=== PATIENT | male | born 1945 | race Caucasian/White ===

== ENCOUNTER 2016-07-02 13:00 | Outpatient (CLI) | payer OTHER ==
--- NOTE | 2016-07-02 14:10 | DIAGNOSTIC IMAGING REPORT ---
PROCEDURE: CT ABDOMEN/PELVIS W/O CONTRAST INDICATION: ABD PAIN TECHNIQUE: Noncontrast axial images were obtained of the entire abdomen and pelvis with sagittal and coronal reformations. COMPARISON: None. FINDINGS: ABDOMEN: Lung base are clear. Heart size is normal. Mild inflammatory changes around the jarett hepatis, enlarged mid mesenteric lymph nodes (3.7 cm), periaortic lymph nodes (1.5 cm) and mild infiltration of the mesenteric root. Enlarged spleen measures 13.5 cm. Liver, gallbladder, pancreas, adrenal glands and right kidney are normal. Left parapelvic cyst. Mild atherosclerosis of the aorta. Small hiatal hernia. Diverticula of the third portion of the duodenum. PELVIS: Appendix not visualized but no evidence of acute appendicitis. Moderate sigmoid diverticulosis. Normal prostate and bladder. No adenopathy, mass, inflammatory changes or free fluid. Right inguinal surgical clips. Right hip arthroplasty. Severe degenerative changes of the spine. IMPRESSION: 1. Mesenteric, periaortic and jarett hepatis adenopathy. Consider lymphoma 2. Thickening of the gallbladder fundus wall and inflammatory changes near the neck. Recommend ultrasound 3. Diverticula of the third portion of the duodenum. 4. Small hiatal hernia 5. Sigmoid diverticulosis 6. Results discussed with Dr. Weiner and Riri Vora. All CT scans at this facility use dose modulation, iterative reconstruction, and/or weight-based dosing when appropriate to reduce radiation dose to as low as reasonably achievable.
== END 2016-07-02 23:00 ==
LOC: CT SRH 13:00
DX: R10.84 Generalized abdominal pain (principal)
CPT/HCPCS: 90074; 90100; 95059

== ENCOUNTER 2016-07-02 13:37 | Inpatient (IN) | payer OTHER ==
[~2016-07-02] VITALS: Ht 177.8 cm; Wt 96.2 kg
--- NOTE | 2016-07-02 16:43 | DIAGNOSTIC IMAGING REPORT ---
PROCEDURE: US ABDOMEN ULTRASOUND-LIMITED INDICATION: RUQ PAIN TECHNIQUE: Oliva scale and color Doppler sonographic images of the abdomen were obtained. COMPARISON: CT abdomen pelvis 07/02/2016. FINDINGS: There are three gallstones in the gallbladder fundus with thickened (9 mm) and hyperemic gallbladder wall with small amount of pericholecystic fluid. Epigastric tenderness is present. CBD measures 6.3 mm. Normal liver. Pancreas poorly visualized. Visualized aorta and IVC are patent. Normal hepatopetal flow. Normal right kidney measures 12.1 cm. IMPRESSION: 1. Cholelithiasis with inflammatory changes consistent with acute cholecystitis 2. Results discussed with Dr. Weiner
--- NOTE | 2016-07-02 17:18 | ED ORDER SUMMARY ---
..... Patient: EDWARDO HWANG OrderSheet [facility] VisitID: [id number] [place] [address] 70y, M Registration Date/Time: 07/02/2016 ORDER SHEET Weight: 95.2 kg (stated) Allergies: No Known Drug Allergy GENERAL ORDERS: US Abdomen Limited (Yes) Urgent (14:07/02/2016 DMjuan Hamilton) (Ack 14:33 EMILYoeryulissa) (16:14 KHoerner) CBC w Diff Urgent (14:07/02/2016 August Hamilton) (Ack 14:33 EMILYoerner) (14:39 ALawrence ER Tech1) (Cancelled: Physician Order14:40 August Hamilton) CMP Urgent (14:07/02/2016 August Hamilton) (Ack 14:33 Luca) (14:39 ALawrence ER Tech1) (Cancelled: Physician Order14:40 August Hamilton) UA-Culture if indicated Urgent (14:07/02/2016 August Hamilton) (Ack 14:33 Luca) (16:22 EHassan R.N.) Amylase Urgent (14:07/02/2016 August Hamilton) (Ack 14:33 Adonayrner) (14:39 ALawrence ER Tech1) (Cancelled: Physician Order14:40 August Hamilton) Lipase Urgent (14:07/02/2016 August Hamilton) (Ack 14:33 EMILYoerner) (14:39 ALawrence ER Tech1) MEDICATION ORDERS: IV FLUIDS: IV NS : initial bolus none -, then 1000 mL/hr for X1 (NOW) (14:28 07/02/2016 August Hamilton) (14:37 EHassan R.N.) Zofran IV 4 mg (NOW) (14:41 07/02/2016 EHassan R.N. per protocol) (14:42 EHassan R.N.) ORDER SHEET NOTES: [Electronically signed by Vinay Weiner Dr. (18:04 07/02/2016)] [Electronically signed by Saige Carbajal R.N. (07/02/2016)] [Electronically locked/signed by Saige Carbajal R.N. (07/02/2016)]
--- NOTE | 2016-07-02 17:18 | ED ORDER SUMMARY ---
..... Patient: EDWARDO HWANG OrderSheet [facility] VisitID: [id number] [place] [address] 70y, M Registration Date/Time: 07/02/2016 ORDER SHEET Weight: 95.2 kg (stated) Allergies: No Known Drug Allergy GENERAL ORDERS: US Abdomen Limited (Yes) Urgent (14:07/02/2016 DMjuan Hamilton) (Ack 14:33 EMILYoeryulissa) (16:14 KHoerner) CBC w Diff Urgent (14:07/02/2016 August Hamilton) (Ack 14:33 EMILYoerner) (14:39 ALawrence ER Tech1) (Cancelled: Physician Order14:40 August Hamilton) CMP Urgent (14:07/02/2016 August Hamilton) (Ack 14:33 Luca) (14:39 ALawrence ER Tech1) (Cancelled: Physician Order14:40 August Hamilton) UA-Culture if indicated Urgent (14:07/02/2016 August Hamilton) (Ack 14:33 Luca) (16:22 EHassan R.N.) Amylase Urgent (14:07/02/2016 August Hamilton) (Ack 14:33 Adonayrner) (14:39 ALawrence ER Tech1) (Cancelled: Physician Order14:40 August Hamilton) Lipase Urgent (14:07/02/2016 August Hamilton) (Ack 14:33 EMILYoerner) (14:39 ALawrence ER Tech1) MEDICATION ORDERS: IV FLUIDS: IV NS : initial bolus none -, then 1000 mL/hr for X1 (NOW) (14:28 07/02/2016 August Hamilton) (14:37 EHassan R.N.) Zofran IV 4 mg (NOW) (14:41 07/02/2016 EHassan R.N. per protocol) (14:42 EHassan R.N.) ORDER SHEET NOTES: [Electronically signed by Vinay Weiner Dr. (18:04 07/02/2016)] [Electronically signed by Saige Carbajal R.N. (07/02/2016)] [Electronically locked/signed by Saige Carbajal R.N. (07/02/2016)]
--- NOTE | 2016-07-02 17:18 | ED CLINICAL REPORT ---
Clinical Report - Physicians/Mid Levels [facility] [address] [place] [address] 07/02/2016 13:38 Patient: EDWARDO HWANG Time Seen: 14:00; upon arrival, initial patient contact, initial documentation, patient care assumed. Arrived- By private vehicle. HISTORY OF PRESENT ILLNESS Chief Complaint: ABDOMINAL PAIN. This started today and is still present (persistent). It was abrupt in onset and has been waxing/waning. It is described as "pain". At its maximum, severity described as 2 / 10. When seen in the E.D., severity described as mild. The patient has had vomiting and diarrhea. Similar symptoms previously: None. Recent medical care: Not recently seen/assessed. REVIEW OF SYSTEMS No constipation, black stools, fever, chest pain or difficulty breathing. Last bowel movement: today. He has had chills. All systems otherwise negative, except as recorded above. PAST HISTORY Malignant Lymphoma. Hypertension. Hypercholesterolemia. Heart Disease. Cancer. ADDITIONAL SURGERIES: Appendectomy. CABG x3. Total Hip Replacement. -. Medications: ASA Oral. Blood Thinner. Allergies: No Known Drug Allergy. SOCIAL HISTORY Former smoker. No alcohol use or drug use. ADDITIONAL NOTES The nursing notes have been reviewed. PHYSICAL EXAM Vital Signs: 07/02/2016 13:54 BP: 157/72. HR: 56. RR: 18. O2 saturation: 100%. Temp: 97.4 F. Pain level now: 1010. Have been reviewed. Hypertensive. Bradycardic. Respiratory rate normal. Temperature normal. Oxygen saturation normal. Appearance: Alert. Oriented X3. No acute distress. Eyes: Eyes normal inspection. No scleral icterus. ENT: Dry mucous membranes present. CVS: Normal heart rate and rhythm. Heart sounds normal. Respiratory: No respiratory distress. Breath sounds normal. Abdomen: Soft. Mild tenderness in the right upper quadrant and epigastric area. Positive Schroeder's sign. No guarding or rebound tenderness. Bowel sounds normal. No organomegaly. No mass. Back: Normal inspection. No CVA tenderness. Skin: Skin warm. Normal skin color. Extremities: No lower extremity edema. Neuro: Oriented X 3. LABS, X-RAYS, AND EKG Abdominal Sonogram: (1. Cholelithiasis with inflammatory changes consistent with acute cholecystitis). Study included the gallbladder. Prior studies were not available for comparison. The study was interpreted by the radiologist and discussed with the radiologist. Interpretation time: 16:57. Laboratory Tests: CBC w Diff: (VENICE: 07/02/2016 14:03) ( [facility] [place] 14:45) Final results Test Result Flag Units (Reference) WHITE BLOOD COUNT 8.8 K/uL (4.5-11.5) RED BLOOD COUNT 4.86 M/uL (4.50-5.90) HEMOGLOBIN 13.5 gm/dL (13.5-17.5) HEMATOCRIT 40.8 L % (41.0-53.0) MEAN CELL VOLUME 84 fL (80-100) MEAN CORPUSCULAR HGB 28 pg (26-34) MEAN CORPUSCULAR HGB CONC 33 g/dL (31-37) RED CELL DISTRIBUTION WIDTH 13.9 % (11.6-14.8) PLATELET COUNT 197 K/uL (150-400) NEUTROPHIL % 85.3 H % (50-75) LYMPH % 7.4 L % (25-40) MONO % 6.8 % (3-14) EOSINOPHIL % 0.4 % (0-4) BASOPHIL % 0.1 % (0-2) CMP: (VENICE: 07/02/2016 14:03) ( [facility] [place] 07/02/2016 15:36) Final results Test Result Flag Units (Reference) GLUCOSE 122 H mg/dL (70-110) BUN 20 H mg/dL (7-18) CREATININE 0.8 mg/dL (0.6-1.3) Estimated GFR >60 mL/min Estimated GFR- >60 mL/min Note: Persistent reduction over 3 months in eGFR<60 mL/min/1.73 m2 defines CKD. Patients with eGFR values>=60 mL/min/1.73 m2 may also have CKD if evidence ofpersistent proteinuria. Additional information may be foundat www.kidney.org. SODIUM 139 mmol/L (136-145) POTASSIUM 3.7 mmol/L (3.5-5.1) CHLORIDE 102 mmol/L (98-107) CARBON DIOXIDE 25 mmol/L (21-32) CALCIUM 8.8 mg/dL (8.5-10.1) TOTAL PROTEIN 8.0 g/dL (6.4-8.2) ALBUMIN 3.6 g/dL (3.3-5.0) BILIRUBIN, TOTAL 0.5 mg/dL (0.0-1.0) ALKALINE PHOSPHATASE 90 U/L (46-116) AST (SGOT) 52 H U/L (15-37) ALT (SGPT) 62 U/L (12-78) LIPASE 87 U/L (73-393) AMYLASE 34 U/L (25-115) . Note - Tests: (CT Abd/Pelvis done as an outpt today: 1. Mesenteric, periaortic and jarett hepatis adenopathy. Consider lymphoma 2. Thickening of the gallbladder fundus wall and inflammatory changes near the neck. Recommend ultrasound 3. Diverticula of the third portion of the duodenum. 4. Small hiatal hernia 5. Sigmoid diverticulosis). PROGRESS AND PROCEDURES Discussed case with health care provider (call returned 17:15 Dr. Moeller. Will admit pt.). Consult obtained from surgery. call returned 17:10 Dr. Nicole. Admit to hospitalist and due to being on Plavix will defer surgery for ~ 2 days. Disposition: Admitted to Acute Care. Condition: good. Admit decision based on need for IV antibiotics, stabilization of condition and surgery. CLINICAL IMPRESSION Acute cholecystitis with cholelithiasis. No obstruction or choledocholithiasis. INSTRUCTIONS Follow-up: Screening today revealed the patient's blood pressure to be in the pre-hypertensive range. The patient was admitted and blood pressure will be managed during the admission. (Electronically signed by Vinay Weiner Dr. 07/02/2016 18:04)
--- NOTE | 2016-07-02 17:18 | ED CLINICAL REPORT ---
Clinical Report - Physicians/Mid Levels [facility] [address] [place] [address] 07/02/2016 13:38 Patient: EDWARDO HWANG Time Seen: 14:00; upon arrival, initial patient contact, initial documentation, patient care assumed. Arrived- By private vehicle. HISTORY OF PRESENT ILLNESS Chief Complaint: ABDOMINAL PAIN. This started today and is still present (persistent). It was abrupt in onset and has been waxing/waning. It is described as "pain". At its maximum, severity described as 2 / 10. When seen in the E.D., severity described as mild. The patient has had vomiting and diarrhea. Similar symptoms previously: None. Recent medical care: Not recently seen/assessed. REVIEW OF SYSTEMS No constipation, black stools, fever, chest pain or difficulty breathing. Last bowel movement: today. He has had chills. All systems otherwise negative, except as recorded above. PAST HISTORY Malignant Lymphoma. Hypertension. Hypercholesterolemia. Heart Disease. Cancer. ADDITIONAL SURGERIES: Appendectomy. CABG x3. Total Hip Replacement. -. Medications: ASA Oral. Blood Thinner. Allergies: No Known Drug Allergy. SOCIAL HISTORY Former smoker. No alcohol use or drug use. ADDITIONAL NOTES The nursing notes have been reviewed. PHYSICAL EXAM Vital Signs: 07/02/2016 13:54 BP: 157/72. HR: 56. RR: 18. O2 saturation: 100%. Temp: 97.4 F. Pain level now: 1010. Have been reviewed. Hypertensive. Bradycardic. Respiratory rate normal. Temperature normal. Oxygen saturation normal. Appearance: Alert. Oriented X3. No acute distress. Eyes: Eyes normal inspection. No scleral icterus. ENT: Dry mucous membranes present. CVS: Normal heart rate and rhythm. Heart sounds normal. Respiratory: No respiratory distress. Breath sounds normal. Abdomen: Soft. Mild tenderness in the right upper quadrant and epigastric area. Positive Schroeder's sign. No guarding or rebound tenderness. Bowel sounds normal. No organomegaly. No mass. Back: Normal inspection. No CVA tenderness. Skin: Skin warm. Normal skin color. Extremities: No lower extremity edema. Neuro: Oriented X 3. LABS, X-RAYS, AND EKG Abdominal Sonogram: (1. Cholelithiasis with inflammatory changes consistent with acute cholecystitis). Study included the gallbladder. Prior studies were not available for comparison. The study was interpreted by the radiologist and discussed with the radiologist. Interpretation time: 16:57. Laboratory Tests: CBC w Diff: (VENICE: 07/02/2016 14:03) ( [facility] [place] 14:45) Final results Test Result Flag Units (Reference) WHITE BLOOD COUNT 8.8 K/uL (4.5-11.5) RED BLOOD COUNT 4.86 M/uL (4.50-5.90) HEMOGLOBIN 13.5 gm/dL (13.5-17.5) HEMATOCRIT 40.8 L % (41.0-53.0) MEAN CELL VOLUME 84 fL (80-100) MEAN CORPUSCULAR HGB 28 pg (26-34) MEAN CORPUSCULAR HGB CONC 33 g/dL (31-37) RED CELL DISTRIBUTION WIDTH 13.9 % (11.6-14.8) PLATELET COUNT 197 K/uL (150-400) NEUTROPHIL % 85.3 H % (50-75) LYMPH % 7.4 L % (25-40) MONO % 6.8 % (3-14) EOSINOPHIL % 0.4 % (0-4) BASOPHIL % 0.1 % (0-2) CMP: (VENICE: 07/02/2016 14:03) ( [facility] [place]/02[place] 15:36) Final results Test Result Flag Units (Reference) GLUCOSE 122 H mg/dL (70-110) BUN 20 H mg/dL (7-18) CREATININE 0.8 mg/dL (0.6-1.3) Estimated GFR >60 mL/min Estimated GFR- >60 mL/min Note: Persistent reduction over 3 months in eGFR<60 mL/min/1.73 m2 defines CKD. Patients with eGFR values>=60 mL/min/1.73 m2 may also have CKD if evidence ofpersistent proteinuria. Additional information may be foundat www.kidney.org. SODIUM 139 mmol/L (136-145) POTASSIUM 3.7 mmol/L (3.5-5.1) CHLORIDE 102 mmol/L (98-107) CARBON DIOXIDE 25 mmol/L (21-32) CALCIUM 8.8 mg/dL (8.5-10.1) TOTAL PROTEIN 8.0 g/dL (6.4-8.2) ALBUMIN 3.6 g/dL (3.3-5.0) BILIRUBIN, TOTAL 0.5 mg/dL (0.0-1.0) ALKALINE PHOSPHATASE 90 U/L (46-116) AST (SGOT) 52 H U/L (15-37) ALT (SGPT) 62 U/L (12-78) LIPASE 87 U/L (73-393) AMYLASE 34 U/L (25-115) . Note - Tests: (CT Abd/Pelvis done as an outpt today: 1. Mesenteric, periaortic and jarett hepatis adenopathy. Consider lymphoma 2. Thickening of the gallbladder fundus wall and inflammatory changes near the neck. Recommend ultrasound 3. Diverticula of the third portion of the duodenum. 4. Small hiatal hernia 5. Sigmoid diverticulosis). PROGRESS AND PROCEDURES Discussed case with health care provider (call returned 17:15 Dr. Moeller. Will admit pt.). Consult obtained from surgery. call returned 17:10 Dr. Nicole. Admit to hospitalist and due to being on Plavix will defer surgery for ~ 2 days. Disposition: Admitted to Acute Care. Condition: good. Admit decision based on need for IV antibiotics, stabilization of condition and surgery. CLINICAL IMPRESSION Acute cholecystitis with cholelithiasis. No obstruction or choledocholithiasis. INSTRUCTIONS Follow-up: Screening today revealed the patient's blood pressure to be in the pre-hypertensive range. The patient was admitted and blood pressure will be managed during the admission. (Electronically signed by Vinay Weiner Dr. 07/02/2016 18:04)
--- NOTE | 2016-07-02 17:18 | ED NURSING NOTES ---
Clinical Report - Nurses [facility] [address] [place] [address] 07/02/2016 13:38 Patient: EDWARDO HWANG TRIAGE Triage time 1355 PM. Acuity: LEVEL 3. Chief Complaint: ABDOMINAL PAIN, NAUSEA and VOMITING. Alert. No acute distress. SEPSIS SCREEN: Sepsis Screen. Negative (no infection suspected/documented). ANJALI COMA SCORE: [place] Coma Scale: 15- eyes open spontaneously (4); best verbal response- oriented x 4 (5); best motor response- obeys commands (6). --14:14 Saige Carbajal R.N. 13:54 07/02/16. BP: 157/72. HR: 56. RR: 18. O2 saturation: 100% on room air. Temp: 97.4 F (oral). Pain level now: 12/03. --14:14 Saige Carbajal R.N. Weight: 95.2 kg stated. Height/Length: 70 inches Per Patient. BMI: 30.1. --13:54 Saige Carbajal R.N. Medications Blood Thinner. --14:04 Saige Carbajal R.N. ASA Oral. --14:05 Saige Carbajal R.N. Allergies No Known Drug Allergy. --14:00 Saige Carbajal R.N. Medication/allergy information source: the patient. --14:14 Saige Carbajal R.N. History Arrived by private vehicle. Historian: patient. Accompanied by family. Primary physician (Dr. Santos). ( Pt states this AM at 0230 a.m. started feeling "pain on his belly" Pt points to his mid epigastric area. Pt states pain went away at 6 am, then came back, went to see Dr. Santos for the pain, got sent over for labs and a CT scan. Pt could not take the pain anymore and came to the ED. Pt does think is "food poisoning".). The patient has had nausea, vomiting, diarrhea and abdominal pain. No constipation or fever. Last oral intake by patient was breakfast this morning. Treatment VOCAL MUSIC TEACHER: None. PAST MEDICAL HX: Immunizations: up-to-date. SOCIAL HX: Never smoker. No drug use. No recent travel. No infectious disease exposure. No known contact with a sick individual. ABUSE ASSESSMENT: No report of abuse. SELF HARM ASSESSMENT: A self harm assessment was performed. The patient answered "no" to the question "Do you have thoughts of harming or killing yourself?" and "Have you recently had thoughts about harming or killing others?". FALL RISK ASSESSMENT: Fall risk assessment completed. No fall risk identified. NUTRITIONAL RISK ASSESSMENT: The nutritional risk assessment revealed no deficiencies. FUNCTIONAL ASSESSMENT: Functional assessment: no impairments noted. LEARNING NEEDS ASSESSMENT: The learning needs assessment revealed no barriers. SKIN INTEGRITY ASSESSMENT: Skin integrity risk assessment completed. No skin integrity risk identified. --14:14 Saige Carbajal R.N. PROBLEMS: Malignant Lymphoma. Hypertension. Hypercholesterolemia. Heart Disease. Cancer. --14:05 Saige Carbajal R.N. ADDITIONAL SURGERIES: Appendectomy. CABG x3. Total Hip Replacement. --14:05 Saige Carbajal R.N. Interventions ID band on patient. --14:14 Saige Carbajal R.N. PHYSICAL ASSESSMENT To room via wheelchair. GENERAL / NEURO / PSYCH: Alert. Oriented X 4. Appears in pain. HEENT: Mucous membranes are pink. RESPIRATORY: Respirations not labored. Breath sounds within normal limits. CVS: Capillary refill less than 2 seconds. GI / : The patient has had nausea. Abdominal tenderness. Rebound tenderness. Guarding present. SKIN: Skin is warm and dry. --14:16 Saige Carbajal R.N. NURSING PROGRESS NOTES The initial plan of care for this patient has been created This plan of care was discussed with the patient. Patient gowned. Warming measures: blanket applied. Reassurance given. Two patient identifiers checked. Call light placed in reach. Side rails up x 1. Bed placed in lowest position. Patient ready for evaluation- ED physician notified. --14:16 Saige Carbajal R.N. 14:06 07/02/2016 Site #1 started via IV in the left antecubital space with an 20g angiocath; one attempt. --14:16 Saige Carbajal R.N. 14:22 07/02/2016 Started bag #1 1000 mL IV Fluids IV NS (Saline); at 1000 mL/hr over 1 hour(s) via site #1 via IV pump. Allergies verified and confirmed 5 rights. IV patency established. IV site checked: no pain, redness, or swelling. IV flushed thoroughly pre- and post-medication administration. --14:37 Saige Carbajal R.N. 14:27 07/02/2016 Zofran (Ondansetron HCl) IVP 4 mg given over 2 minute(s) via site #1. Allergies verified and confirmed 5 rights. IV patency established. IV site checked: no pain, redness, or swelling. IV flushed thoroughly pre- and post-medication administration. IVP given by RN. --14:42 Saige Carbajal R.N. 15:11 07/02/2016 Zofran IVP Response: no adverse reaction. --15:26 Saige Carbajal R.N. Reassessment after fluids administered. He is calm and resting quietly. Overall patient status is improved- he states feels better. ( Pt aware of needing UA, fluids given, pain "better" Will monitor). GI / : The patient reports abdominal pain. Call light placed in reach. Patient waiting for CT results. --15:30 Saige Carbajal R.N. 15:27 07/02/16. BP: 137/61 (regular adult cuff) taken on the left arm, via an automated monitor, while lying. HR: 68. RR: 12. O2 saturation: 95% on room air. Temp: 98.7 F (oral). Pain level now: 5/10. --15:30 Saige Carbajal R.N. ( pt reports pain /10, states improvement since presentation "whatever you gave me when I got here that's all I need" pt notified to stay NPO, last food intake early this morning. family at bedside, pt on bp cuff and O2 sat monitor.). --16:50 Edith Dia R.N. 16:50 07/02/16. BP: 137/71. HR: 73. RR: 17. O2 saturation: 94%. Pain level now: 4/10. --16:51 Page-Edith Mock R.N. ( H/P forms on chart). --17:21 Elizabeth Santos ( overview faxed to 2nd floor.). --17:27 Elizabeth Santos. DISPOSITION / DISCHARGE 18:19 07/02/2016 Site #1; patent. Line flushed with saline. Good blood return present. --18:24 Saige Carbajal R.N. Departure time: 1824 PM. Condition at departure: stable. Transported via wheelchair by transport team. FALL RISK ASSESSMENT: Fall risk assessment completed. No fall risk identified. --18:24 Saige Carbajal R.N. 18:15 07/02/16. BP: 125/84. HR: 74. RR: 14. O2 saturation: 100% on room air. Temp: 99 F (oral). Pain level now: 06/03. --18:24 Saige Carbajal R.N. Locked/Released at 07/02/2016 21:25 by Saige Carbajal R.N.
--- NOTE | 2016-07-02 18:25 | Consultation Report ---
History Chief Complaint Epigastric right upper quadrant abdominal pain History of Present Illness A 70-year-old male admitted to [facility] emergency room by Dr. Moeller. According to the patient that 2:00 in the morning he was awakened by severe epigastric right upper quadrant abdominal pain. Patient got up and walked around and went back to bed feeling somewhat better. Patient ate breakfast and went to work. At work with pain turned. Described as sharp/intense. Localized to the epigastric right upper quadrant region radiating into his back. Associate with nausea and vomiting. Associated with chills but no fever. No diarrhea. Patient states that he's never had pain like this before. MEDICATIONS: Patient is on Plavix dose is unknown Patient is on simvastatin dose unknown Patient takes 2 baby aspirin per day The patient is on metoprolol half a tablet in the morning half tablet in the evening dose unknown ALLERGIES: no known medical allergies PAST MEDICAL/SURGICAL HISTORY: Hypercholesterolemia Asthma Status post resection "parotid" tumor right neck age 17 Status post tonsillectomy adenoidectomy Status post appendectomy Status post coronary artery bypass graft x34 years ago, 2 weeks later stent placed Status post vasectomy Status post right groin lymph node biopsy with diagnosis of lymphoma. Lymphoma in remission Colonoscopy 5 years ago at [facility] Patient History 1. Acute cholecystitis due to biliary calculus Social History . 21 daughter alive and well Patient is not. Patient does not drink alcohol Drinks 8-10 Of coffee per day Does not use recreational drugs Patient's presently employed at [employer] for 6 years FAMILY HISTORY: Mother age 90 congestive heart failure. Father age 72 pneumonia One brother esophageal cancer 1 sister lymphoma Medications and Allergies Medications See above dictation note dosages known by patient. No dose was entered by emergency room nurse or emergency room physician. Allergies Coded Allergies: NKA (07/02/16) Review of Systems Other No history of hepatitis, jaundice, rheumatic fever, heart murmurs requiring antibiotics, or bleeding tendencies. Question with history of blood transfusions in the past. Patient does admit to occasional shortness of breath attributed to his asthma. Remaining 12 point review of systems negative and noncontributory Physical Exam Vital Signs / I&Os Vital signs pending on board. Vital signs stable emergency room. Afebrile. General Appearance Alert, Oriented X3, Cooperative, No acute distress HEENT Normal exam, Atraumatic, PERRLA, EOMI, Moist mucous membranes, no scleral icterus Lungs bilateral is matured for wheezing and rhonchi Cardiovascular Regular rate and rhythm Abdomen Normal bowel sounds, Soft, No tenderness, No guarding, negative Schroeder sign Extremities No cyanosis, No clubbing Skin skin is warm and dry Neurological No lateralizing signs Psych/Mental Status Mood normal LAB Results White count 8.8 Hemoglobin hematocrit 13.5/40.8 respectively. Total bilirubin 0.5 SGOT slightly elevated 52 SGPT 62 L4 phosphatase 98 Lipase 87 Laboratory Tests 07/02 07/02 1403 1619 Chemistry Plasma Sodium (136 - 145 mmol/L) 139 Plasma Potassium (3.5 - 5.1 mmol/L) 3.7 Plasma Chloride (98 - 107 mmol/L) 102 CO2 (Enzymatic) (21 - 32 mmol/L) 25 BUN (7 - 18 mg/dL) 20 Creatinine (0.6 - 1.3 mg/dL) 0.8 Est GFR ( Amer) (mL/min) >60 Est GFR (Non-Af Amer) (mL/min) >60 Glucose (70 - 110 mg/dL) 122 Plasma Calcium (8.5 - 10.1 mg/dL) 8.8 Total Bilirubin (0.0 - 1.0 mg/dL) 0.5 AST (15 - 37 U/L) 52 ALT (12 - 78 U/L) 62 Alkaline Phosphatase (46 - 116 U/L) 90 Total Protein (6.4 - 8.2 g/dL) 8.0 Albumin (3.3 - 5.0 g/dL) 3.6 Amylase (25 - 115 U/L) 34 Lipase (73 - 393 U/L) 87 Hematology WBC (4.5 - 11.5 K/uL) 8.8 RBC (4.50 - 5.90 M/uL) 4.86 Hgb (13.5 - 17.5 gm/dL) 13.5 Hct (41.0 - 53.0 %) 40.8 MCV (80 - 100 fL) 84 MCH (26 - 34 pg) 28 RDW (11.6 - 14.8 %) 13.9 Neut % (Auto) (50 - 75 %) 85.3 Lymph % (Auto) (25 - 40 %) 7.4 [place] % (Auto) (3 - 14 %) 6.8 Eos % (Auto) (0 - 4 %) 0.4 Baso % (Auto) (0 - 2 %) 0.1 Plt Count, EDTA (150 - 400 K/uL) 197 PUBS MCHC (31 - 37 g/dL) 33 Urines Urine Color YELLOW Urine Appearance CLEAR Urine pH (5.0 - 8.0) 6.5 Ur Specific [place] (1.010 - 1.030) 1.025 Urine Protein (NEGATIVE) TRACE Urine Ketones (NEGATIVE) 2+ Urine Blood (NEGATIVE) NEGATIVE Urine Nitrite (NEGATIVE) NEGATIVE Urine Bilirubin (NEGATIVE) NEGATIVE Urine Urobilinogen (0.2 - 1.0 EU/dL) 0.2 Ur Leukocyte Esterase (NEGATIVE) NEGATIVE Urine RBC (0 - 1 rbc/hpf) NONE SEEN Urine WBC (0 - 1 wbc/hpf) 0-1 Ur Epithelial Cells (0 - 5 EPI/hpf) 0-1 Urine Bacteria (NONE SEEN) NONE SEEN Urine Glucose (NEGATIVE) NEGATIVE Urine Comment CULT NOT INDICATED Imaging Ultrasound of patient's gallbladder interpreted by radiology as showing 3 gallstones in the fundus of the gallbladder. A 9 mm hyperemic gallbladder wall. Small amount of pericholecystic fluid. Consistent with acute cholecystitis Assessment and Plan Problem List 1. Acute cholecystitis due to biliary calculus Plan Patient with acute calculus cholecystitis. Patient however has been on Plavix and aspirin. Recommend admission, hydration, n.p.o., antibiotics, and repeat labs in a.m. We'll reevaluate on a daily basis and determine what would be the best time to take him to surgery. Optimal 5-7 days. Patient states that he thinks he may not have taken his Plavix for 3 days already. I have discussed the pathophysiology of gallbladder disease with the patient and his daughter who was in attendance. We have discussed the laparoscopic cholecystectomy and risks to include but not exclusive of trocar site infection/ hernia, conversion to open procedure, hemorrhage, transfusion, damage to local structures, damage to major ductal system, retained stone, bile leak, pancreatitis, pneumonia, and pulmonary embolus. All questions at this point it been answered to her satisfaction.
[2016-07-02 18:36] VITALS: BP 117/58
--- NOTE | 2016-07-02 19:14 | Progress Note ---
Subjective General 70 y.o male who is admitted with acute cholecystitis. Hx of lymphoma, hx of cad. Being admittted for cholecystitis and anticipate surgery in around 2 days when plavix, asa out of system. full note dictated.
--- NOTE | 2016-07-02 19:55 | HISTORY AND PHYSICAL ---
ADMITTED: 07/02/2016 CHIEF COMPLAINT: 1. Abdominal pain HISTORY OF PRESENT ILLNESS: The patient states that he awoke this morning with severe abdominal pain diffusely at around 2:30 a.m., it was constant, periumbilical and 10/10, unable to really describe the quality of the pain any more. He had some nausea, no vomiting, got worse as he ate a little bit of peanut butter and he had some solid foods at 6 a.m., normal bowel movements. No black or bloody stools. No other symptoms with or GI. He has had a little bit of cold symptoms, but otherwise has felt well. MEDICAL/SURGICAL HISTORY: Past medical history: He has had heart disease, history of lymphoma. Past surgical history: Open-heart surgery and hip surgery in 2016. MEDICATIONS: 1. Multivitamin p.o. daily. 2. Metoprolol 25 mg 1/2 p.o. b.i.d. 3. Plavix 75 mg p.o. daily. 4. Aspirin 81 mg p.o. daily. 5. Atorvastatin 80 mg p.o. daily. ALLERGIES: 1. NONE KNOWN. SOCIAL HISTORY: He is , 3 children. His synagogue preference is "following [employer]." FAMILY HISTORY: Father of pneumonia. Mom of old age. Sister had lymphoma. REVIEW OF SYSTEMS: Otherwise negative for any bleeding. No yellowing of his eyes , liver or bowel issues. PHYSICAL EXAMINATION: GENERAL: He is an alert male in no apparent distress. VITAL SIGNS: Heart rate of 73, respirations 18, blood pressure 117/58, temperature 99.4, saturating at 91% on room air. HEENT: Extraocular movements intact. Pupils equal, round, and reactive to light. Oropharynx is clear with moist mucous membranes. NECK: Supple without lymphadenopathy. LUNGS: Has a left-sided wheeze that seems to be referred from his upper airways. HEART: Regular rate and rhythm with a small click at the left lower sternal border. ABDOMEN: Minimal to no tenderness, at this point. No guarding, no rebound. BACK: No CVA tenderness. EXTREMITIES: No edema. No sores. GENITOURINARY: Deferred. RECTAL: Deferred. BREASTS: Deferred. NEUROLOGIC: Cranial nerves II-XII intact. Strength and sensation grossly intact. LAB/IMAGING: Emergency department laboratories: White count of 8.8, hematocrit 40.8 and platelets of 157,000. Chemistries: Sodium 139, potassium 3.7, chloride of 102, HCO3 25, BUN of 20, creatinine of 0.8, glucose 122, calcium 8.8, bili 0.5. AST of 52, ALT 62, alk phos of 90, total protein 8.0, albumin 3.6, amylase of 34 , lipase of 87. Urinalysis was normal with a specific gravity of 1.025, negative leuk esterase, negative nitrite, positive ketones. Imaging: He had an ultrasound of his abdomen that showed cholelithiasis and inflammatory changes consistent with acute cholecystitis. CT showed: 1. Mesenteric periaortic, jarett hepatis adenopathy, consider lymphoma. 2. Thickening of gallbladder, fundus wall and inflammatory changes near the neck. Recommend ultrasound. 3. Diverticula in the third portion of the duodenum, a small hiatal hernia, sigmoid diverticulosis. EKG: Pending at this time. IMPRESSION: 1. Abdominal pain, which is now much improved. He is feeling better and he is hoping to eat. I will talk with Dr. Nicole regarding his current status. PLAN: For IV antibiotics for a couple days and then see how he is doing prior to taking him to the operating room. The patient is very motivated to eat. He has okay laboratories, at this point. I will check on an EKG with his history of heart disease and we will also consider telemetry, depending on the EKG or if he starts having any other symptoms and we will anticipate that patient will have surgery for his gallbladder in a few days and likely this was a cause of his abdominal discomfort. Currently he is feeling much better.
[2016-07-02 20:37] VITALS: BP 121/54
--- NOTE | 2016-07-02 21:25 | ED MED RECONCILIATION SUMMARY ---
Patient: EDWARDO HWANG Ailyn Nea Medication Reconciliation Report [facility] VisitID: [id number] [address] [place] [address] 70y, M Registration Date/Time: 07/02/2016 Weight: 95.2 kg Height/Length: 70 in. BMI: 30.1 ALLERGIES: No Known Drug Allergy The patient's Home Medications are listed below: THE FOLLOWING MEDICATIONS NEED TO BE RECONCILED: ASA Oral Blood Thinner The source(s) of the original Home Medication information: patient The following Medications were given to the patient in the Emergency Department: IV NS IV Fluids bolus 0, then 1000 mL/hr, administered: 07/02/2016 2:22:00 PM Zofran [IVP] IVP 4 mg, administered: 07/02/2016 2:27:00 PM The following Medications were prescribed to the patient: None.
--- NOTE | 2016-07-02 21:25 | ED DISCHARGE INSTRUCTIONS ---
Patient: EDWARDO HWANG General Instructions [facility] VisitID: [id number] [address] [place] [address] 70y, M Registration Date/Time: 07/02/2016 Acute cholecystitis with cholelithiasis. No obstruction or choledocholithiasis. INSTRUCTIONS Follow-up: Screening today revealed the patient's blood pressure to be in the pre-hypertensive range. The patient was admitted and blood pressure will be managed during the admission. (Electronically signed by Vinay Weiner Dr. 07/02/2016 18:04)
--- NOTE | 2016-07-02 21:25 | ED MED RECONCILIATION SUMMARY ---
Patient: EDWARDO HWANG Ailyn Nae Medication Reconciliation Report [facility] VisitID: [id number] [address] [place] [address] 70y, M Registration Date/Time: 07/02/2016 Weight: 95.2 kg Height/Length: 70 in. BMI: 30.1 ALLERGIES: No Known Drug Allergy The patient's Home Medications are listed below: THE FOLLOWING MEDICATIONS NEED TO BE RECONCILED: ASA Oral Blood Thinner The source(s) of the original Home Medication information: patient The following Medications were given to the patient in the Emergency Department: IV NS IV Fluids bolus 0, then 1000 mL/hr, administered: 07/02/2016 2:22:00 PM Zofran [IVP] IVP 4 mg, administered: 07/02/2016 2:27:00 PM The following Medications were prescribed to the patient: None.
--- NOTE | 2016-07-02 21:25 | ED DISCHARGE INSTRUCTIONS ---
Patient: EDWARDO HWANG General Instructions [facility] VisitID: [id number] [address] [place] [address] 70y, M Registration Date/Time: 07/02/2016 Acute cholecystitis with cholelithiasis. No obstruction or choledocholithiasis. INSTRUCTIONS Follow-up: Screening today revealed the patient's blood pressure to be in the pre-hypertensive range. The patient was admitted and blood pressure will be managed during the admission. (Electronically signed by Vinay Weiner Dr. 07/02/2016 18:04)
--- NOTE | 2016-07-02 21:25 | ED MAR SUMMARY ---
..... Medication Administration Record [facility] [address] [place] [address] Patient: EDWARDO HWANG Visit ID: [id number] 70y, M Weight: 95.2 kg Height/Length: 70 in BMI: 30.1 ALLERGIES: No Known Drug Allergy Start 14:22 07/02/2016 Saige Carbajal R.N. Medication Administered: IV NS (SALINE), Dose: IV Fluids over 1 hour(s), Rate: 1000 mL/hr, Dispensed: 1000 mL bag, Site: #1 left AC. Medication Ordered: IV NS : initial bolus none -, then 1000 mL/hr for X1 (NOW). Given 14:27 07/02/2016 Saige Carbajal R.N. Medication Administered: ZOFRAN [IVP] (ONDANSETRON HCL), Dose: 4 mg IVP over 2 minute(s), Site: #1 left AC. Medication Ordered: Zofran IV 4 mg (NOW).
--- NOTE | 2016-07-02 21:25 | ED MAR SUMMARY ---
..... Medication Administration Record [facility] [address] [place] [address] Patient: EDWARDO HWANG Visit ID: [id number] 70y, M Weight: 95.2 kg Height/Length: 70 in BMI: 30.1 ALLERGIES: No Known Drug Allergy Start 14:22 07/02/2016 Saige Carbajal R.N. Medication Administered: IV NS (SALINE), Dose: IV Fluids over 1 hour(s), Rate: 1000 mL/hr, Dispensed: 1000 mL bag, Site: #1 left AC. Medication Ordered: IV NS : initial bolus none -, then 1000 mL/hr for X1 (NOW). Given 14:27 07/02/2016 Saige Carbajal R.N. Medication Administered: ZOFRAN [IVP] (ONDANSETRON HCL), Dose: 4 mg IVP over 2 minute(s), Site: #1 left AC. Medication Ordered: Zofran IV 4 mg (NOW).
[2016-07-02 22:30] VITALS: BP 106/54
--- NOTE | 2016-07-02 22:36 | NUR ---
PATIENT REFUSED SCDS. DR CORREA AWARE. NO NEW ORDERS FROM . TOLD DR CORREA ABOUT PATIENTS TEMPERATURE, DR CORREA NOT CONCERNED. NO NEW ORDERS FROM .
[2016-07-03] VITALS (7 sets, daily range): BP systolic 98–117; BP diastolic 54–73
--- NOTE | 2016-07-03 02:21 | NUR ---
PT A&O X3, UP OUT OF BED INDEPENDENTLY TO BATHROOM. DENIES PAIN. COOPERATIVGE DURING CARE. LOW GRADE FEVER, C/O HAVING "COLD."
--- NOTE | 2016-07-03 07:34 | Progress Note ---
Subjective General Patient states that he had a little more pain after a little food last night. Now clear liq and doing better. Has pain that comes and goes. Waiting until Friday for plavix,asa out of system. No cp, no acute process. Physical Exam Vital Signs / I&Os Vital Signs Date Time Temp Pulse Resp B/P Pulse O2 O2 Flow FiO2 Ox Delivery Rate 07/03 0531 98.2 67 16 98/61 91 Room Air 0.0 07/03 0221 100.4 69 15 116/62 92 Room Air 07/03 0213 Room Air 07/02 2230 99.1 74 16 106/54 95 Room Air 07/02 2047 94 07/02 2037 80 121/54 07/02 1836 99.3 73 18 117/58 91 Room Air I&O 07/03 0000 07/02 1600 07/02 0800 Intake Total 600 Output Total 250 Balance 350 General Appearance Alert, Cooperative Lungs coarse BS Cardiovascular Regular rate and rhythm Abdomen Soft, No tenderness, No guarding Extremities No edema LAB Results Laboratory Tests 07/03 07/02 07/02 0545 1619 1403 Chemistry Plasma Sodium (136 - 145 mmol/L) 141 139 Plasma Potassium (3.5 - 5.1 mmol/L) 4.0 3.7 Plasma Chloride (98 - 107 mmol/L) 107 102 CO2 (Enzymatic) (21 - 32 mmol/L) 28 25 BUN (7 - 18 mg/dL) 15 20 Creatinine (0.6 - 1.3 mg/dL) 0.7 0.8 Est GFR ( Amer) (mL/min) >60 >60 Est GFR (Non-Af Amer) (mL/min) >60 >60 Glucose (70 - 110 mg/dL) 105 122 Plasma Calcium (8.5 - 10.1 mg/dL) 8.0 8.8 Total Bilirubin (0.0 - 1.0 mg/dL) 0.6 0.5 AST (15 - 37 U/L) 59 52 ALT (12 - 78 U/L) 73 62 Alkaline Phosphatase (46 - 116 U/L) 102 90 Total Protein (6.4 - 8.2 g/dL) 6.5 8.0 Albumin (3.3 - 5.0 g/dL) 2.7 3.6 Amylase (25 - 115 U/L) 34 Lipase (73 - 393 U/L) 79 87 Hematology WBC (4.5 - 11.5 K/uL) 7.2 8.8 RBC (4.50 - 5.90 M/uL) 4.18 4.86 Hgb (13.5 - 17.5 gm/dL) 11.8 13.5 Hct (41.0 - 53.0 %) 35.3 40.8 MCV (80 - 100 fL) 85 84 MCH (26 - 34 pg) 28 28 RDW (11.6 - 14.8 %) 14.0 13.9 Neut % (Auto) (50 - 75 %) 75.6 85.3 Lymph % (Auto) (25 - 40 %) 10.9 7.4 [place] % (Auto) (3 - 14 %) 12.1 6.8 Eos % (Auto) (0 - 4 %) 1.2 0.4 Baso % (Auto) (0 - 2 %) 0.2 0.1 Plt Count, EDTA (150 - 400 K/uL) 155 197 PUBS MCHC (31 - 37 g/dL) 33 33 Urines Urine Color YELLOW Urine Appearance CLEAR Urine pH (5.0 - 8.0) 6.5 Ur Specific [place] (1.010 - 1.030) 1.025 Urine Protein (NEGATIVE) TRACE Urine Ketones (NEGATIVE) 2+ Urine Blood (NEGATIVE) NEGATIVE Urine Nitrite (NEGATIVE) NEGATIVE Urine Bilirubin (NEGATIVE) NEGATIVE Urine Urobilinogen (0.2 - 1.0 EU/dL) 0.2 Ur Leukocyte Esterase (NEGATIVE) NEGATIVE Urine RBC (0 - 1 rbc/hpf) NONE SEEN Urine WBC (0 - 1 wbc/hpf) 0-1 Ur Epithelial Cells (0 - 5 EPI/hpf) 0-1 Urine Bacteria (NONE SEEN) NONE SEEN Urine Glucose (NEGATIVE) NEGATIVE Urine Comment CULT NOT INDICATED Assessment and Plan Problem List 1. Acute cholecystitis due to biliary calculus Plan stable, surgery when surgery is ready for this asa,plavix out of system. Check on cxr pre op. 2. CAD (coronary artery disease) Plan home meds but hold on anti coagulants.
--- NOTE | 2016-07-03 09:18 | NUR ---
medications would not scan this a.m., verified with second RN patient and medications
--- NOTE | 2016-07-03 14:25 | NUR ---
PATIENT TOLERATING SERVICES WELL THIS SHIFT , TOLERATING CLEAR LIQUID DIET BUT STATES THAT HE IS HUNGRY. DENIES PAIN. HAD MILD NAUSEA, MEDICATED WITH ZOFRAN IV AND PATIENT STATED THAT IT WAS EFFECTIVE.
--- NOTE | 2016-07-03 16:59 | NUR ---
PATIETN RESTING IN BED NOW. REFUSED SCDS. MD AWARE. NO NEW ORDERS. SIN NO DISTRESS. WATCHING TV NOW, HAD VISITORS TODAY.
--- NOTE | 2016-07-03 17:10 | NUR ---
WAS TOLD IS AWARE OF CURRENT LAB VALUES.
[2016-07-04] VITALS (7 sets, daily range): BP systolic 96–123; BP diastolic 51–76
--- NOTE | 2016-07-04 06:11 | Progress Note ---
Subjective General 70-year-old male hospital day 2. Tolerating clear liquid diet, no nausea or no vomiting. No abdominal complaints. Ambulatory. Physical Exam Vital Signs / I&Os Vital Signs Date Time Temp Pulse Resp B/P Pulse O2 O2 Flow FiO2 Ox Delivery Rate 07/04 0249 99.0 64 15 108/56 96 Room Air Room Air I&O 07/03 0800 07/03 1600 07/04 0000 Intake Total 750 1169 1080 Output Total 1175 1775 Balance -425 1169 -695 General Appearance Alert, Oriented X3, Cooperative, No acute distress HEENT PERRLA, EOMI, Moist mucous membranes Lungs Clear to auscultation Cardiovascular Regular rate and rhythm Abdomen Normal bowel sounds, Soft, No tenderness Extremities No cyanosis, No edema Skin warm and dry Neurological No lateralizing signs Psych/Mental Status Mood normal LAB Results White count 4.5 Laboratory Tests 07/04 0535 Chemistry Plasma Sodium Pending Plasma Potassium Pending Plasma Chloride Pending CO2 (Enzymatic) Pending BUN Pending Creatinine Pending Est GFR ( Amer) Pending Est GFR (Non-Af Amer) Pending Glucose Pending Plasma Calcium Pending Plasma Magnesium Pending Total Bilirubin Pending AST Pending ALT Pending Alkaline Phosphatase Pending Total Protein Pending Albumin Pending Hematology WBC (4.5 - 11.5 K/uL) 4.5 RBC (4.50 - 5.90 M/uL) 4.22 Hgb (13.5 - 17.5 gm/dL) 11.9 Hct (41.0 - 53.0 %) 35.4 MCV (80 - 100 fL) 84 MCH (26 - 34 pg) 28 RDW (11.6 - 14.8 %) 14.0 Neut % (Auto) (50 - 75 %) 66.7 Lymph % (Auto) (25 - 40 %) 14.1 [place] % (Auto) (3 - 14 %) 15.3 Eos % (Auto) (0 - 4 %) 3.5 Baso % (Auto) (0 - 2 %) 0.4 Plt Count, EDTA (150 - 400 K/uL) 161 PUBS MCHC (31 - 37 g/dL) 34 Assessment and Plan Problem List 1. Acute cholecystitis due to biliary calculus Plan Stable present hospital course. Calculus cholecystitis. Plan is to take patient to surgery tomorrow in the afternoon for laps, cholecystectomy. The procedure of laparoscopic cholecystectomy been explained to the patient including potential risks which include but not exclusive of trocar site infection, hernia, hemorrhage/transfusion, conversion to open procedure, damage to local structures, damage to major ductal system, retained stone, bile leak, pancreatitis, postoperative pneumonia or pulmonary embolus. Patient understands and agrees to proceed with scheduling him appropriately.
--- NOTE | 2016-07-04 06:30 | NUR ---
Uneventful night. Pt slept well, no complaints of pain or n/v.
--- NOTE | 2016-07-04 06:37 | DIAGNOSTIC IMAGING REPORT ---
PROCEDURE: XR CHEST 1 VIEW INDICATION: pre op TECHNIQUE: Portable AP view 05:46 a.m. COMPARISON: None. FINDINGS: Lungs are clear. Median sternotomy. Heart size, mediastinum and pulmonary vessels are normal. Moderate degenerative changes of the spine. IMPRESSION: 1. No acute changes 2. Median sternotomy
--- NOTE | 2016-07-04 07:02 | Progress Note ---
Subjective General Patient is here for cholecystitis, abdominal pain, hx of CAD was on asa and plavix. Has tried po with increase in abdominal pain. Is now waiting for surgery with IV abx for cholecystitis. Yesterday was starting to elevate temp. Is now feeling a little better and surgery planned for tomorrow. Physical Exam Vital Signs / I&Os Vital Signs Date Time Temp Pulse Resp B/P Pulse O2 O2 Flow FiO2 Ox Delivery Rate 07/04 0643 98.4 54 16 96/51 94 Room Air 0.0 07/04 0249 99.0 64 15 108/56 96 Room Air 07/04 0011 Room Air 07/03 2257 99.5 69 16 113/61 95 Room Air 07/03 2024 99.7 67 117/73 94 07/03 1815 98.4 65 20 106/54 94 Room Air 0.0 07/03 1451 97.9 57 20 106/66 94 Room Air 0.0 07/03 1029 99.1 07/03 0840 Room Air 07/03 0840 70 107/58 I&O 07/04 0000 07/03 1600 07/03 0800 Intake Total 1080 1169 750 Output Total 1775 1175 Balance -695 1169 -425 General Appearance Alert, Cooperative HEENT Normal exam Lungs Clear to auscultation, Normal air movement Cardiovascular Regular rate and rhythm, No murmurs, gallops, rubs Abdomen Soft, No tenderness Extremities No edema Neurological Normal exam LAB Results Laboratory Tests 07/04 0535 Chemistry Plasma Sodium (136 - 145 mmol/L) 143 Plasma Potassium (3.5 - 5.1 mmol/L) 4.1 Plasma Chloride (98 - 107 mmol/L) 108 CO2 (Enzymatic) (21 - 32 mmol/L) 28 BUN (7 - 18 mg/dL) 9 Creatinine (0.6 - 1.3 mg/dL) 0.7 Est GFR ( Amer) (mL/min) >60 Est GFR (Non-Af Amer) (mL/min) >60 Glucose (70 - 110 mg/dL) 93 Plasma Calcium (8.5 - 10.1 mg/dL) 8.2 Plasma Magnesium (1.8 - 2.4 mg/dL) 2.1 Total Bilirubin (0.0 - 1.0 mg/dL) 1.2 AST (15 - 37 U/L) 504 ALT (12 - 78 U/L) 679 Alkaline Phosphatase (46 - 116 U/L) 302 Total Protein (6.4 - 8.2 g/dL) 6.4 Albumin (3.3 - 5.0 g/dL) 2.5 Hematology WBC (4.5 - 11.5 K/uL) 4.5 RBC (4.50 - 5.90 M/uL) 4.22 Hgb (13.5 - 17.5 gm/dL) 11.9 Hct (41.0 - 53.0 %) 35.4 MCV (80 - 100 fL) 84 MCH (26 - 34 pg) 28 RDW (11.6 - 14.8 %) 14.0 Neut % (Auto) (50 - 75 %) 66.7 Lymph % (Auto) (25 - 40 %) 14.1 [place] % (Auto) (3 - 14 %) 15.3 Eos % (Auto) (0 - 4 %) 3.5 Baso % (Auto) (0 - 2 %) 0.4 Plt Count, EDTA (150 - 400 K/uL) 161 PUBS MCHC (31 - 37 g/dL) 34 Imaging cxr with no acute process this am, had wheezes on admit. Assessment and Plan Problem List 1. Acute cholecystitis due to biliary calculus Plan Patient is with cholecystitis. Has surgery pending for tomorrow. Has been on IV abx, and also some IVF. Monitoring patient in the hospital. On admit he was certain that he wanted to eat and then flare on abdominal pain. Has a hx of cad and doing well at this time but waiting on plavix, asa to be out of the system for surgery tomorrow. 2. CAD (coronary artery disease) Plan No cp, no acute EKG changes.
[2016-07-04] MEDS ORDERED: PLAVIX75 MG PO (12:32)
[2016-07-04] MEDS ORDERED: LIPITOR80 MG PO (12:32)
--- NOTE | 2016-07-04 14:45 | NUR ---
NUTRITION NOTE: Pt admitted 07/02/16 and awaiting lap tayla. Rev'd PMH, appears unremarkable. Pt assessed at low nutrition risk at this time. Surgery tomorrow, advance diet when medically appropriate.
--- NOTE | 2016-07-04 15:59 | NUR ---
CALLED DR. BERNAL THIS A.M. AT 1000 TO NOTIFY HIM THAT LIVER ENZYMES ARE ELEVATED - NO NEW ORDERS PER SURGEON, EXPECTED TO BE RELATED TO CONDITION. DISCUSSED WITH PHARMACY THIS AFTERNOON D/T THE FACT THAT PATIENT HAS BEEN RECIEVING MEME YIP WITH PHARMACY TO NOTIFY DR. CORREA. [facility]
--- NOTE | 2016-07-04 16:36 | NUR ---
WAS TOLD BY PREVIOUS MIGUEL POOLE IS AWARE OF CURRENT LAB VALUES AND IT IS OK GO AHEAD AND HANG HIS ANTIBIOTICS TONIGHT. NO NEW ORDERS FROM MD AT THIS TIME. PATIETN RESTIGN IN BED NOW. IN NO DISTRESS.
--- NOTE | 2016-07-04 17:43 | NUR ---
Spoke to Dr. Moeller reharding elevated Tbili and LFT's in setting of ceftriaxone and flagyl. No changes to abx at this time. Pt to have planned ronda bourne in AM.
--- NOTE | 2016-07-04 19:52 | NUR ---
I discussed with the patient their current medications, possible side effects, and answered questions.
--- NOTE | 2016-07-04 22:35 | NUR ---
patient resting in bed now in no distress. was told dr is aware of current lab values.
[2016-07-05] VITALS (13 sets, daily range): BP systolic 99–138; BP diastolic 37–89
--- NOTE | 2016-07-05 07:07 | Progress Note ---
Subjective General Patient states that he feels well. He has surgery pending for this pm. Had spike in his LFTs yesterday and will re check on labs this am. Hopefully, will be home in 1-2 days. Physical Exam Vital Signs / I&Os Vital Signs Date Time Temp Pulse Resp B/P Pulse O2 O2 Flow FiO2 Ox Delivery Rate 07/05 0226 97.9 58 14 128/71 92 Room Air 0.0 07/05 0050 Room Air 07/04 2229 97.9 60 16 107/57 90 Room Air 07/04 2218 63 07/04 2122 97.5 52 18 123/76 95 Room Air 07/04 1805 98.8 54 18 106/65 97 Room Air 07/04 1436 98.2 52 16 101/56 92 Room Air 07/04 1024 97.2 54 16 108/58 92 Room Air 0.0 07/04 0850 Room Air 0.0 I&O 07/05 0000 07/04 1600 07/04 0800 Intake Total 480 1227 686 Output Total 825 1100 550 Balance -345 127 136 General Appearance Alert Lungs Clear to auscultation, Normal air movement Cardiovascular Regular rate and rhythm Abdomen Soft, No tenderness Extremities No edema Assessment and Plan Problem List 1. Acute cholecystitis due to biliary calculus Plan Patient is doing well overall. Has elevation in LFTs re check this am. Had low HR last pm and initially held betablocker. Feels good. 2. CAD (coronary artery disease) Plan Has been stable, no cp, sob. Surgery today. Hopefully to get betablocker in if HR over 65.
--- NOTE | 2016-07-05 13:45 | NUR ---
PT HAS BEEN OOB AD JOSE AND AMBULATING THE HALLWAY FREQUENTLY. HAS DENIED ABD PAIN AND NO PAIN RX NEEDED. AWAITING SURGERY. CEO ZIFF DAVISSAMANTA MESSER CAME TO THE FLOOR AND ALERTED MYSELF AND PT THAT SURGERY HAS BEEN PUSHED TO 1700. PT HAS BEEN PLEASANT AND COOPERATIVE. GAVE EDUCATION ON S/P LAP KEERTHI DIETARY NEEDS.
--- NOTE | 2016-07-05 17:25 | NUR ---
PT LEFT TO OR AT 1700 VIA [employer]. BOARDING PASS COMPLETE. IV ANTIBX RUNNING DURING TRANSFER. VSS.
--- NOTE | 2016-07-05 18:16 | NUR ---
GLASSES REMOVED, PLACE IN CONTAINER, LABELED AND TAKEN TO PACU
--- NOTE | 2016-07-05 18:52 | DIAGNOSTIC IMAGING REPORT ---
PROCEDURE: XR INTRAOPERATIVE LAP KEERTHI INDICATION: Surgery. Cholecystectomy. TECHNIQUE: Study performed and contrast injected by Dr. Nicole Fluoroscopy time 15-second (5.4 mGy). COMPARISON: Comparison is made abdominal ultrasound and CT abdomen and pelvis on 07/02/2016. FINDINGS: Two AP C-arm views. Common duct is normal and there is no evidence of obstruction. IMPRESSION: 1. Negative intraoperative cholangiogram.
--- NOTE | 2016-07-05 18:59 | NUR ---
PATIENT ARRIVED TO PACU AT 1854. SPONT RESP. SLEEPING. VITALS STABLE ON ROOM AIR. ABDOMEN SOFT, WITH CLEAN, DRY DRESSINGS. WILL CONTINUE TO MONITOR.
--- NOTE | 2016-07-05 19:15 | Operative Report ---
Operative Report Date of Surgery: 07/05/16 Preoperate Diagnosis: acute cholecystitis cholelithiasis Postoperative Diagnosis: acute cholecystitis cholelithiasis and normal intraoperative cholangio Surgeon: Salvador Nicole MD Program Checker Surgeon: none Procedure Performed: Laparoscopic cholecystectomy with intraoperative cholangiogram and interpretation Anesthesia: General endotracheal Indications: 70-year-old male who presented to [facility] emergency room with acute onset right upper quadrant abdominal pain. Patient had been on aspirin and Plavix. Ultrasound consistent with acute cholecystitis. Patient was admitted to [facility] and after 2 days of observation was taken to the operating room on the third day. FINDINGS: Distended thick-walled gallbladder, cholelithiasis, back wall of the gallbladder fibrotic and firmly adherent to the bed. Normal intraoperative cholangiogram, free flow of contrast material into the duodenum. No evidence of obstruction, retained stone. Visualization hepatic radicals, hepatic duct and common bile duct. Surgical Technique: Patient brought to the operating room. Patient placed in the supine position. Patient underwent general endotracheal anesthesia. After proper anesthesia taken effect, the patient's abdomen was prepped and draped in a sterile fashion. An infraumbilical incision made carried down to skin and subcutaneous tissue. A varies needle was inserted through this site into the abdominal cavity. After ascertaining its appropriate position with suction irrigation, a pneumoperitoneum obtained using CO2 insufflation to a approximately 14-15 mmHg pressure. Once this pressure was reached, the varies needle was removed and replaced with a 10 mm trocar. Trocar removed leaving its sleeve through which a laparoscopic video camera was introduced into the abdominal cavity. Under direct visualization a separate 10 mm trocar was placed in the sub-xiphoid region. Under direct visualization two 5 mm trochars were placed in the right anterior lateral abdominal wall, approximately 3-4 fingerbreadths below the costal margin. Each trocar entered the abdominal cavity under direct visualization. All trochars removed leaving the sleeves behind through which laparoscopic instrumentation was then introduced into the abdominal cavity. The gallbladder grasped and retracted cephalad. Adhesions to the anterior wall of the gallbladder were taken down using a combination of blunt dissection and electrocautery. At this point it became necessary to place a second 10 mm trocar in the right lower quadrant. The trocar entered the abdominal cavity under direct visualization. The trocar removed leaving the sleeves behind through which an Endo-Fan was introduced. The Endo-fFan was then used to retract the omentum and the duodenum giving us better exposure to the neck of the gallbladder. Using a combination of blunt dissection and electrocautery the cystic duct was circumferentially isolated. A small incision made in the anterior surface of the cystic duct, and a percutaneous cholangiocatheter was threaded through the anterior abdominal wall into the cystic duct. The cholangiocatheter was clipped into position and intraoperative cholangiogram obtained with the aforementioned findings noted. Once completed the cholangiocatheter was retrieved from the cystic duct and the abdominal cavity. The cystic duct was clipped in continuity and divided. The cystic artery identified clipped in continuity and divided. The gallbladder was taken down from its bed using electrocautery dissection in a retrograde fashion. This was difficult secondary to the fibrosis of the back wall of gallbladder and being firmly adherent to its bed. Once the gallbladder was completely freed , it was transferred to a sterile specimen container bag. The gallbladder was then retrieved from the abdominal cavity and sent to pathology. Hemostasis achieved using electrocautery. The right upper quadrant was irrigated copiously with warm normal saline antibiotic solution. The irrigant suctioned out. The pneumoperitoneum released. All trochars were removed from the abdominal cavity. All trocar sites were approximated using 4-0 subdermal Polysorb and Steri- Strips. Sterile occlusive dressings placed over each wound. Patient was extubated and transferred to the recovery room in stable condition. There were no intraoperative anesthetic, occasions. COMPLICATIONS; none CONDITION: Stable to postop anesthesia recovery room ESTIMATED BLOOD LOSS: Minimal FLUIDS: 600 cc lactated Ringer's DRAINS: None SPECIMENS: Gallbladder and contents
--- NOTE | 2016-07-05 20:17 | NUR ---
PT ARRIVED TO FLOOR AROUND 1999, C/O PAIN AT 5/10, STILL DROWSY. DAUGHTER AT HIS SIDE. NO C/O NAUSEA. VSS. 5 TROCHAR SITES, UMBILICUS SITE HAS SMALL AMOUNT OF BLOOD, ALL OTHER SITES C/D/I. AMBULATED IND W/ SBA FROM GURNEY TO BED IN ROOM. RESTING W/ CALL LIGHT IN REACH.
[2016-07-06 02:20] VITALS: BP 131/71
[2016-07-06 06:42] VITALS: BP 113/66
[2016-07-06] MEDS ORDERED: HYCET1 ML PO (09:34)
--- NOTE | 2016-07-06 09:36 | Provider's Discharge Care Plan ---
Problem, Goal, Plan Problem List 1. S/P laparoscopic cholecystectomy Goals: Improve disease control, Therapeutic intervention Instructions: Follow up as directed, Take meds as directed
--- NOTE | 2016-07-06 09:36 | Provider's Discharge Care Plan ---
Problem, Goal, Plan Problem List 1. S/P laparoscopic cholecystectomy Goals: Improve disease control, Therapeutic intervention Instructions: Follow up as directed, Take meds as directed
--- NOTE | 2016-07-06 11:03 | Progress Note ---
Subjective General 70-year-old male status post laparoscopic cholecystectomy and intraoperative cholangiogram postop day 1 asymptomatic. Tolerating by mouth. Ambulatory. Physical Exam Vital Signs / I&Os Vital Signs Date Time Temp Pulse Resp B/P Pulse O2 O2 Flow FiO2 Ox Delivery Rate 07/06 0905 Room Air 07/06 0642 99.0 62 18 113/66 90 Nasal 0.0 Cannula 07/06 0220 98.4 63 17 131/71 90 Nasal 1.0 Cannula 07/06 0025 Nasal 1.0 Cannula 07/05 2226 97.9 59 16 110/67 95 Nasal 2.0 Cannula 07/057 50 16 113/52 97 Nasal 2.0 Cannula 07/055 50 12 108/41 98 Nasal 2.0 Cannula 07/05 2100 49 16 99/37 92 Room Air 07/055 51 104/51 95 Nasal 2.0 Cannula 07/05 2029 49 126/66 93 Nasal 2.0 Cannula 07/05 2014 49 130/60 97 Nasal 2.0 Cannula 07/05 2006 98.1 50 12 131/57 99 Nasal 2.0 Cannula 07/05 1955 46 12 124/63 96 07/05 1950 Nasal 2.0 Cannula 07/05 1950 47 18 129/64 94 07/05 1945 46 12 125/60 97 07/05 1940 49 18 123/60 98 07/05 1930 47 10 118/62 97 07/05 1925 97.3 47 13 132/62 98 07/05 1920 48 13 136/70 97 07/05 1915 49 13 147/72 98 07/05 1910 47 10 155/68 99 07/05 190 49 10 147/73 97 07/05 1900 49 10 142/68 97 07/05 1855 97.9 63 15 157/72 95 07/05 1442 97.9 54 12 138/80 99 Room Air 07/05 1301 163 125/89 07/05 1106 98.4 50 16 117/61 94 Room Air 0.0 I&O 07/05 0800 07/05 1600 07/06 0000 Intake Total 1839 954 913 Output Total 1050 950 200 Balance 789 4 713 General Appearance Alert, Oriented X3, Cooperative, No acute distress Lungs Clear to auscultation Cardiovascular Regular rate and rhythm Abdomen Normal bowel sounds, all trocar site dressings dry and intact Skin warm and dry Neurological No lateralizing signs Psych/Mental Status Mood normal Assessment and Plan Problem List 1. S/P laparoscopic cholecystectomy Plan Postop day #1 laparoscopic cholecystectomy. Discharge as per Dr. Sweet. Follow -up in 10 days. Hycet elixir 1 tablespoon Q6 hours when necessary pain resume home meds. Activity level as tolerated. Diet as tolerated.
--- NOTE | 2016-07-06 11:08 | NUR ---
TOLERATED BREAKFAST WELL. C/O 5/10 S/P LAP KEERTHI PAIN. LORTAB 15ml GIVEN AND EFFECTIVE. UMBILICAL TROCAR SITE SATURATED WITH SEROSANG FLUID. CLEANED AND PLACED NEW 4X4 AND LARGE CLEAR TEGADERM. NO DRAINAGE NOTED SINCE NEW DRESSING PLACED. WENT OVER DC INSTRUCTIONS, GAVE PRESCRIPTION AND EDUCATION ON CURRENT DIAGNOSIS. PT STATED UNDERSTANDING. ESCORTED OUT VIA WC TO PRIVATE CAR HOME.
--- NOTE | 2016-07-06 11:09 | Progress Note ---
Late Entry Date/Time Late Entry Date and Time LATE ENTRY Date of visit: Time of visit:
--- NOTE | 2016-07-06 11:09 | Progress Note ---
Late Entry Date/Time Late Entry Date and Time LATE ENTRY Date of visit: Time of visit:
--- NOTE | 2016-07-16 09:54 | DISCHARGE SUMMARY ---
ADMIT DATE: 07/02/2016 DISCHARGE DATE: 07/06/2016 ADMITTING DIAGNOSES: 1. Cholecystitis. 2. History of heart disease. 3. Abdominal pain. DISCHARGE DIAGNOSES: 1. Cholecystitis. 2. History of heart disease. 3. Abdominal pain. BRIEF HISTORY: For details, please refer to admit dictation. HOSPITAL COURSE: The patient was admitted through the emergency department. He had cholecystitis and was given a couple days to calm down his gallbladder and then he had an operation with Dr. Nicole. Please refer to the operation dated 07/05/2016 for details of a cholecystectomy and intraoperative cholangiogram that. He was doing well postoperatively and then discharged back to home. DISCHARGE INSTRUCTIONS/MEDICATIONS: Discharge medications included hydrocodone 7.5/325 15 mL p.o. q.6 hours p.r.n. pain postoperatively, atorvastatin 80 mg p.o. daily, Plavix 75 mg p.o. daily. The patient to follow up with his regular doctor as well as with Dr. Nicole postoperatively, the patient at the time of discharge was doing well, seen by Dr. Nicole and discharged by him on that day with him found stable.
== END 2016-07-06 11:30 | disposition home or self-care (01) | DRG 418 ==
LOC: ED SRH 13:37 → TRANS SRH 17:52 → ACUTE2 SRH 18:20
PROVIDERS: Specialist; ADMIT Family Medicine
PROC: BF101ZZ Fluoroscopy of Bile Ducts using Low Osmolar Contrast (ICD-10-PCS; principal; 2016-07-05 14:45)
PROC: 0FT44ZZ Resection of Gallbladder, Percutaneous Endoscopic Approach (ICD-10-PCS; principal; 2016-07-05 14:45)
DX: K80.00 Calculus of gallbladder with acute cholecystitis without obstruction (principal); C85.95 Non-Hodgkin lymphoma, unspecified, lymph nodes of inguinal region and lower limb; I25.10 Atherosclerotic heart disease of native coronary artery without angina pectoris; Z95.1 Presence of aortocoronary bypass graft; Z79.02 Long term (current) use of antithrombotics/antiplatelets; Z79.82 Long term (current) use of aspirin
CPT/HCPCS: 50002; 60001; 70002; 80102; 80248; 82669; 82794; 82807; 83198; 83338; 83339; 83348; 83587; 83920; 83937; 83982; 84038; 90001; 90004; 90074; 90100; 90155; 91004; 92235; 92530; 92720; 95059